=== PATIENT | male | born 1980 | race Caucasian/White ===

== ENCOUNTER 2021-11-28 19:15 | Emergency (ER) | payer SELFPAY ==
[~2021-11-28] VITALS: Ht 177.8 cm; Wt 86.2 kg
[2021-11-28 19:19] VITALS: BP 85/47
--- NOTE | 2021-11-28 19:19 | NUR ---
FARHEEN MCALLISTER TAKEN TO CHAIR E
[2021-11-28] MEDS ORDERED: NACL 0.9% 1,000 ML IV ONE ×2 (19:20→22:10)
--- NOTE | 2021-11-28 19:20 | NUR ---
29 Y/O M FARHEEN FROM HOME WITH C/O ALTERED MENTAL STATUS. PER EMS PT HAD SYNCOPICAL EPISODE AT HOME. PT PRESENTS HYPOTENSIVE BP 80/30S AND TACHYCARDIAC 115S. PT GIVEN 250 CC BOLUS EN ROUTE. Addendum: 11/28/21 at 2233 by MEDGJ 40 Y/O M
--- NOTE | 2021-11-28 20:05 | NUR ---
PT TAKEN TO CT VIA [facility]
--- NOTE | 2021-11-28 21:04 | NUR ---
MARIA DOLORES MONTILLA [phone] CALLED REQUESTING UPDATE
--- NOTE | 2021-11-28 22:05 | NUR ---
PETER RANDHAWA SISTER [phone] CALLED REQUESTING UPDATE
[2021-11-28 22:10] VITALS: BP 60/36
[2021-11-28 22:10] LABS: BASOPHILS # (AUTO) 0.1 K/uL (0.00-0.22); BASOPHILS % (AUTO) 0.7 % (0.0-2.0); EOSINOPHILS # (AUTO) 0.1 K/uL (0-0.4); EOSINOPHILS % (AUTO) 1.3 % (0.0-4.0); HEMATOCRIT 22.5 % (36-52); HEMOGLOBIN 7.7 g/dL (12.0-18.0); LYMPHOCYTES # (AUTO) 0.9 K/uL (2.0-11.5); MEAN CORPUSCULAR HEMOGLOBIN 34 pg (27-31); MEAN CORPUSCULAR HGB CONC 34 g/dL (33-37); MEAN CORPUSCULAR VOLUME 100.2 fL (80-94); MONOCYTES # (AUTO) 0.5 K/uL (0.8-1.0); MONOCYTES % (AUTO) 4.6 % (1.7-9.3); NEUTROPHILS # (AUTO) 8.9 K/uL (1.8-7.7); NEUTROPHILS % (AUTO) 84.4 % (42.2-75.2); PLATELET COUNT (AUTO) 75 K/uL (140-450); RED BLOOD CELL COUNT(AUTO) 2.25 MIL/uL (4.20-6.10); RED CELL DISTRIBUTION WIDTH 14.7 % (11.6-13.7); WHITE BLOOD COUNT (AUTO) 10.6 K/uL (4.8-10.8)
--- NOTE | 2021-11-28 22:10 | NUR ---
PT BP 60/36. DR. HILL NOTIFIED.
--- NOTE | 2021-11-28 22:10 | NUR ---
BROTHER CALLED REQUESTING UPDATE
--- NOTE | 2021-11-28 22:27 | NUR ---
S/W ADN PROVDED UPDATE.
[2021-11-28 22:34] LABS: ALBUMIN 2.3 g/dL (3.4-5.0); ANION GAP 13.2 (8-16); ASPARTATE AMINOTRANSFERASE 45 U/L (15-37); CARBON DIOXIDE 22.1 mmol/L (21-32); CHLORIDE 102 mmol/L (98-107); CREATININE 1.2 mg/dL (0.6-1.3); GFR ARICAN-AMERICAN 87 mL/min (>90); GLUCOSE 196 mg/dL (74-106); POTASSIUM 3.3 mmol/L (3.5-5.1); SODIUM SERUM 134 mmol/L (136-145); THYROID STIMULATING HORMONE 1.84 uIU/mL (0.34-3.74); TOTAL BILIRUBIN 3.7 mg/dL (0.0-1.0); UREA NITROGEN, BLOOD 11 mg/dL (7-18)
--- NOTE | 2021-11-28 22:35 | NUR ---
CALLED [phone] TO GIVE REPORT WITH NO ANSWER.
[2021-11-28] MEDS ORDERED: ONDANSETRON 4 MG/2 ML VIAL ONE (22:42)
[2021-11-28] MEDS ORDERED: ONDANSETRON 4 MG/2 ML VIAL IVP ONE (22:45)
--- NOTE | 2021-11-28 22:51 | NUR ---
CALLED JAVON PAUL S/W BEATRICE AND GIVE REPORT. [facility] TRANSPORTED PT AT THIS TIME.
== END 2021-11-28 22:51 | disposition short-term general hospital (02) ==
LOC: EDBD 19:15 → MED 19:15
DX: S09.90XA Unspecified injury of head, initial encounter (principal); R58 Hemorrhage, not elsewhere classified; R77.8 Other specified abnormalities of plasma proteins; R41.82 Altered mental status, unspecified; D69.6 Thrombocytopenia, unspecified; R55 Syncope and collapse; W19.XXXA Unspecified fall, initial encounter; Y93.89 Activity, other specified; Y92.096 Garden or yard of other non-institutional residence as the place of occurrence of the external cause; Y99.8 Other external cause status
CPT/HCPCS: 70450; 71045; 71260; 72125; 74177; 80053; 82140; 84443; 84484; 85025; 86886; 86900; 86901; 86920; 93005; 96361; 96374; 99291; G0482; J2405; J7030; Q9967